=== PATIENT | female | born 1985 | race Two or more races ===

== ENCOUNTER 2020-01-26 20:08 | Emergency (ER) | payer BC ==
--- NOTE | 2020-01-26 21:17 | EDM.PDOC ---
ED HPI GENERAL MEDICAL PROBLEM - General Stated Complaint: COVID TEST Time Seen by Provider: 01/26/20 21:14 Source of Information: Reports: Patient History Limitations: Reports: No Limitations - History of Present Illness INITIAL COMMENTS - FREE TEXT/NARRATIVE: Patient comes emergency department tonight requesting a COVID test. This patient has complained of sinus congestion drainage and sore throat. She is also lost her taste but not lost her smell. She has sinus pressure and an itchy scratchy throat. She has no itchy watery eyes. No sneezing. No shortness of breath cough or congestion. No weakness dizziness lightheadedness. No chest pain. No fever no chills. No covert exposure no COVID concerns. 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 She has not been exposed to anyone. ED ROS ENT - Review of Systems Review Of Systems: Comprehensive ROS is negative, except as noted in HPI. ED EXAM, ENT - Physical Exam Exam: See Below Exam Limited By: No Limitations General Appearance: Alert, WD/WN, No Apparent Distress Eye Exam: Bilateral Eye: EOMI, Normal Inspection Ears: Normal External Exam, Normal Canal, Hearing Grossly Normal, Normal TMs Nose: No Blood. No: Normal Inspection (Turbinates are pale and quite boggy and edematous bilaterally. There is clear rhinorrhea bilaterally. There is no erythema or injection.) Mouth/Throat: No: Normal Inspection (Anterior pharynx with [id number] vesicles and cobblestoning consistent with postnasal drip. No erythema injection or exudate. The rest of the oropharynx is unremarkable.) Head: Atraumatic, Normocephalic Neck: Normal Inspection, Supple, Non-Tender. No: Lymphadenopathy (L), Lymphadenopathy (R) Respiratory/Chest: No Respiratory Distress, Lungs Clear, Normal Breath Sounds, Chest Non-Tender Cardiovascular: Normal Peripheral Pulses, Regular Rate, Rhythm GI/Abdominal: Normal Bowel Sounds, Soft, Non-Tender (Female) Exam: Deferred Rectal (Female) Exam: Deferred Back: Normal Inspection, Full Range of Motion Extremities: Normal Inspection, Normal Capillary Refill Neurological: Alert, Oriented, Normal Cognition, No Motor/Sensory Deficits Psychiatric: Normal Affect, Normal Mood Skin: Warm, Dry, Intact, Normal Color, No Rash Course - Orders/Labs/Meds Labs: Laboratory Tests 01/26/20 Range/Units 21:15 COVID-19 (DARLENE) Negative (NEGATIVE) - Re-Assessments/Exams Free Text/Narrative Re-Assessment/Exam: 01/26/20 22:16 Really have little clinical suspicion for the presence of COVID in this patient. 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 This is really the sequelae of acute sinusitis or allergic sinus congestion. COVID test negative. Treat her for acute sinusitis with nasal rinses and fluticasone [id number]. If she has new development of symptoms or fever she needs to be rechecked at that time. But her COVID symptoms are really not. In her chest was negative. Discharge directions as below are explained to the patient she was comfortable with this plan and her questions were answered. Departure - Departure Time of Disposition: 21:58 Disposition: Home, Self-Care 01 Clinical Impression: Sinusitis Qualifiers: Sinusitis location: unspecified location Chronicity: acute Recurrence: not specified as recurrent Qualified Code(s): J01.90 - Acute sinusitis, unspecified - Discharge Information Instructions: Sinusitis, Adult, [id number], How to Perform a Sinus Rinse, [id number] Referrals: Luanne Sheehan MD [Primary Care Provider] - Additional Instructions: Increase fluids over the next few days. OTC Netti POt nasal rinse. Twice daily. Fluticasone 1 spray each nostril twice daily for a week and then 1 spray daily. Zyrtec or Gosia otc. Return to the ED if new or worsening symptoms. Follow up with PCP in the next 4-6 days if not improving sooner if worse.
== END 2020-01-26 22:06 | disposition home or self-care (01) ==
LOC: VM.ED 20:08
DX: J01.90 Acute sinusitis, unspecified (principal); Z20.828 Contact with and (suspected) exposure to other viral communicable diseases
CPT/HCPCS: 99283; U0002